=== PATIENT | female | born 1955 | race Caucasian/White ===

== ENCOUNTER → 2019-09-15 | Outpatient (CLI) | payer OTHER ==
[~2019-09-15] VITALS: Ht 147.3 cm; Wt 68.9 kg
[~2019-09-15] MED LIST: FISH OIL 1,001000 M3 PO; HYDROCHLOROTH12.5 M1 PO; HYDROCHLOROTHIA25 M2 PO; MAGNESIUM250 M1 PO; MEDROLDOSEPACK PO; SUPER THERAVIT1 EACH PO; ZOCOR40 MG PO
[2019-09-15 13:34] VITALS: BP 130/71
--- NOTE | 2019-09-15 13:59 | NUR ---
Pain Clinic Assessment: 1. History of Osteoarthritis: BACK History of Rheumatoid Arthritis: Not Applicable 2. Height: 4 ft. 10 in. 147.3 cm. Weight: 152.0 lb. oz. 68.947 kg. Patient's BMI: 31.8 3. Vital Signs: BP: 130/71 Pulse: 80 Resp: 14 Temp: 02 Sat: 100 ECG Mon: 4. Pain Intensity: 6 5. Fall Risk: Dizziness: N Needs help standing or walking: N Fallen in the last 3 months: N Fall risk comments: 6. Patient on Blood Thinner: None 7. History of Hypertension: Y 8. Opioid Therapy greater than 6 weeks: N Opiate Contract Signed: 9. Risk Assessment Tool Provided: LOW RISK 0/3 10. Functional Assessment Tool: 11. Recreational Drug Use: Never Drug Type: Tobacco Use: Never Smoker Tobacco Type: Amount or Packs/day: How Many Years: Alcohol Use: Yes Frequency: Weekly Quant: 6-8
--- NOTE | 2019-09-22 16:27 | HPC ---
[address] [address] PAIN MANAGEMENT CONSULTATION Name: NICK CALHOUN Room #: REG [facility].#: [id number] Admission: 09/15/19 Attend Phys: Kushal Horta DO Discharge: Date of : 57 Report #: [id number] THIS REPORT FOR: //name// CC: Kushal Iqbal MD REFERRING PHYSICIAN: Dr. Deisy Iqbal with [facility]. CHIEF COMPLAINT: Neck pain, left upper extremity pain. HISTORY OF PRESENT ILLNESS: As you know, the patient is a 64-year-old female referred to our service with chronic left neck pain that has been present since 2009. She states about a year ago she underwent a cervical epidural injection with improvement in symptoms. Unfortunately, it will take over a 6-month period of time to be seen back to the [facility] where she received this injection. She was subsequently referred to our clinic to undergo next in the series of cervical epidural injections. She was referred by her primary care to discuss the possibility of undergoing these injections. She noted excellent benefit with previous cervical epidural injection reporting upwards of 70% improvement in overall pain lasting for an extended period of time. She denies injury or trauma to the cervical region that may have caused symptom development. She states she has had history of chronic neck pain that has been present for an extended period of time. MRI of the cervical region shows posterior disk bulge symmetric to the right though the patient is experiencing mainly left-sided pain. She was referred to trial a cervical epidural injection. The patient indicates today's pain is periodic. She describes the pain as shooting, cramping, sharp, numbness and tingling. The patient's current pain score 6/10, daily average of 4-6/10, worst pain has been is 10/10. The patient states yard work and sleeping exacerbates symptoms. Cervical epidural injections, rest and relaxation tend to improve pain. She has been referred to our clinic to undergo cervical epidural injection under fluoroscopic guidance. PAST MEDICAL HISTORY: 1. Asthma. 2. Hypertension. 3. Dyslipidemia. PAST SURGICAL HISTORY: Biopsy of the left breast. SOCIAL HISTORY: The patient denies tobacco, IV or illicit drug use. Admits to 6-8 alcoholic beverages per week. 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 She is working, not receiving workmen's compensation or she is trying to obtain disability benefits. She is unaccompanied at today's visit. REVIEW OF SYSTEMS: Positive for night sweats, fatigue and weakness, frequent [facility] [address] [place] [address] PAIN MANAGEMENT CONSULTATION Name: NICK CALHOUN Room #: REG [facility]#: [id number] Admission: 09/15/19 Attend Phys: Kushal Horta DO Discharge: Date of : 57 Report #: [id number] and recurrent headaches, wearing corrective eyewear, hearing loss with tinnitus, shortness of breath with walking or lying flat, asthma, wheezing, nocturia, varicose veins, numbness and tingling sensations. All other review of systems negative per 12-point review of systems other than those listed in history of present illness. Pain impact score 19 of 70 indicating mild interference of daily activities secondary to pain. ALLERGIES: No reported drug allergies. CURRENT MEDICATIONS: Magnesium 250 mg once a day, multivitamin 1 tab per day, omega-3 fish oil 1 tab per day, simvastatin 40 mg per day, hydrochlorothiazide 25 mg once a day. IMAGING: MRI cervical spine obtained on 01/24/2018 showed C2-3 unremarkable, C3-4 shows bilateral facet uncovertebral hypertrophy causing moderate to severe right and moderate to left foraminal stenosis, no central canal stenosis. C4-5 bilateral facet uncovertebral changes causing moderate to severe right and moderate left neural foraminal stenosis, no central canal stenosis. C5-6 bilateral facet uncovertebral hypertrophy causing severe bilateral foraminal stenosis, posterior disk osteophyte ____ complex causing flattening of the thecal sac. C6-7 posterior disk bulge asymmetric to the right causing compression of thecal sac, bilateral facet and uncovertebral hypertrophy causing mild bilateral foraminal stenosis. C7-T1 shows hypertrophy causing moderate foraminal stenosis. No central canal stenosis. PHYSICAL EXAMINATION: VITAL SIGNS: Blood pressure 130/71, pulse 80, respiratory rate 14 and unlabored. The patient is 100% on room air. Height 4 feet 10 inches tall, weight 152 pounds, BMI calculated 31.8. GENERAL: Well-developed, well-nourished, well-hydrated exogenously obese 64-year-old female appearing stated age, pain is rated at around 6/10. HEENT: Normocephalic, atraumatic. Pupils equal, round, reactive to light. Extraocular muscles are intact. Sclerae nonicteric without injection. NEUROLOGIC: Cranial nerves 2-12 grossly intact. Speech fluent. The patient deemed a good historian. LUNGS: Clear, no wheeze, rhonchi or rales. CARDIOVASCULAR: Regular. No appreciable gallop, no rub. ABDOMEN: Soft, nontender, nondistended, normal active bowel sounds. EXTREMITIES: Show no clubbing, no cyanosis, and no edema. MUSCULOSKELETAL: Upper extremity strength appears symmetrical 5/5. No atrophy noted of the musculature. Muscle bulk and tone equal and symmetrical in comparing left upper extremity to right. Spurling's test is positive left, negative right. Cervical provocation testing including extension, rotation, lateral flexion to the left intensify neck pain with radiation down the arm. [facility] [address] [place] [address] PAIN MANAGEMENT CONSULTATION Name: NICK CALHOUN Room #: REG [facility]#: [id number] Admission: 09/15/19 Attend Phys: Kushal Horta DO Discharge: Date of : 57 Report #: [id number] ASSESSMENT: 1. Cervical radiculopathy. 2. Displacement of cervical intervertebral disk with radiculopathy. 3. Cervical spondylosis with radiculopathy. 4. Foraminal stenosis of the cervical spine. 5. Central canal stenosis of the cervical spine. 6. Chronic intractable pain. PLAN: 1. Based on today's physical exam and history the patient has provided, the description the patient uses in regards to pain as well as the location of symptoms, likely source of the patient's pain is a cervical radiculopathy. The patient and I discussed at length today treatment options for cervical radiculopathy. The following was discussed with the patient on treatment, course is available. 2. We discussed physical therapy, stretching exercises and traction techniques as a treatment course. We discussed medication management utilizing nonsteroidal anti-inflammatories and a consistent nonsteroidal anti-inflammatory such as nortriptyline, amitriptyline, Cymbalta, Lyrica or gabapentin. We discussed cervical epidural injections under fluoroscopic guidance, which have been successful for the patient in the past. We also discussed surgical options with the patient today. After reviewing risks and benefits of all proposed treatment options, the patient chose to begin with a cervical epidural injection under fluoroscopic guidance. The patient was advised risks and benefits of a cervical epidural injection. These risks include but are not necessarily limited to bleeding, bruising, infection, worsening pain, no relief of pain, also risk of temporary or permanent muscle weakness, temporary or permanent nerve damage, possible paralysis, post-dural puncture headache and . The patient states she understood and wished to proceed. 3. No medication changes made at today's visit. The patient will continue current medical therapy as prior prescribed. 4. We will see the patient back in followup visit for next in a series of cervical epidural injections. 5. We wish to thank Dr. Deisy Iqbal for the opportunity to see this patient in consultation. We will keep you apprised of response to treatment as we address cervical radiculopathy. Again, we wish to thank you for the opportunity to see the patient in consultation. PROCEDURE NOTE DESCRIPTION OF PROCEDURE: C7-T1 cervical epidural steroid injection under fluoroscopic guidance. This is the first procedure of the first series that the patient is undergoing. [address] [address] PAIN MANAGEMENT CONSULTATION Name: UNIQUENICK Room #: REG [facility]#: [id number] Admission: 09/15/19 Attend Phys: Kushal Horta DO Discharge: Date of : 57 Report #: [id number] After obtaining written consent, the patient was taken back to the fluoroscopy suite and placed in a prone position with separate pillows under chest and forehead to decrease cervical lordosis. The skin overlying the cervical area was prepped and draped in an aseptic fashion. The C7-T1 vertebral interspace was identified by AP fluoroscopy. The skin and subcutaneous tissue overlying the target site of injection was anesthetized using 3 mL of 1% lidocaine. A 20-gauge 3.5-inch Tuohy needle was advanced under fluoroscopic guidance toward the epidural space using a midline approach. The epidural space was identified using a loss of resistance to air technique. After negative aspiration for heme or cerebrospinal fluid, a total of 1 mL of Omnipaque was injected. A cervical epidurogram was confirmed using AP and oblique fluoroscopy. After negative aspiration for heme or cerebrospinal fluid, 5 mL of a solution containing 2 mL of 40 mg per mL, 80 mg total triamcinolone along with 3 mL lidocaine 1% was injected in increments. Contrast spread was noted from posterior epidural space. The needle was then retracted approximately skilled nursing and the needle track was flushed with 1 mL of 1% lidocaine. There were no apparent new sensory deficits in the upper extremities present following the procedure. A sterile bandage was placed over the injection site. The heart rate, pulse oximetry and blood pressure were continuously monitored after the procedure. There were no apparent complications. The patient tolerated the procedure well and was carefully escorted in the recovery room in stable condition. After meeting discharge criteria, the patient was discharged home. <ELECTRONICALLY SIGNED> By: Kushal Horta DO 09/22/19 [id number] Kushal Horta DO /nt
== END | disposition home or self-care (01) ==
LOC: PAIN 06:58
DX: M50.10 Cervical disc disorder with radiculopathy, unspecified cervical region (principal); M47.22 Other spondylosis with radiculopathy, cervical region; M48.02 Spinal stenosis, cervical region; G89.29 Other chronic pain; I10 Essential (primary) hypertension; E78.5 Hyperlipidemia, unspecified; J45.909 Unspecified asthma, uncomplicated; E66.09 Other obesity due to excess calories; Z98.890 Other specified postprocedural states; Z79.899 Other long term (current) drug therapy; Z68.31 Body mass index [BMI] 31.0-31.9, adult

== ENCOUNTER → 2019-12-29 | Outpatient (CLI) | payer OTHER ==
[~2019-12-29] VITALS: Ht 149.9 cm; Wt 69.7 kg
[2019-12-29 13:09] VITALS: BP 135/76
--- NOTE | 2019-12-29 13:16 | NUR ---
Pain Clinic Assessment: 1. History of Osteoarthritis: BACK History of Rheumatoid Arthritis: Not Applicable 2. Height: 4 ft. 11 in. 149.9 cm. Weight: 153.6 lb. oz. 69.672 kg. Patient's BMI: 31.0 3. Vital Signs: BP: 135/76 Pulse: 79 Resp: 18 Temp: 02 Sat: 98 ECG Mon: 4. Pain Intensity: 4-5 5. Fall Risk: Dizziness: N Needs help standing or walking: N Fallen in the last 3 months: N Fall risk comments: 6. Patient on Blood Thinner: None 7. History of Hypertension: Y 8. Opioid Therapy greater than 6 weeks: N Opiate Contract Signed: 9. Risk Assessment Tool Provided: LOW RISK 0/3 10. Functional Assessment Tool: 11. Recreational Drug Use: Never Drug Type: Tobacco Use: Never Smoker Tobacco Type: Amount or Packs/day: How Many Years: Alcohol Use: Yes Frequency: Quant:
--- NOTE | 2019-12-30 11:52 | HPC ---
[facility] [place] [place] [place] [address] PAIN MANAGEMENT CONSULTATION Name: NICK CALHOUN Room #: REG [facility].#: [id number] Admission: 12/29/19 Attend Phys: Kushal Horta DO Discharge: Date of : 57 Report #: [id number] THIS REPORT FOR: cc: Deisy Iqbal MD, Tisha Darice MD Johnson, James E. DO ~ DATE OF SERVICE: 12/29/2019 CHIEF COMPLAINT: Neck pain, right upper extremity pain with paresthesias. HISTORY OF PRESENT ILLNESS: As you know, the patient is a 64-year-old female who returns today in followup visit with recurrent neck pain, now right upper extremity pain with paresthesias. As you are aware, the patient suffers from C5-C6, severe neural foraminal stenosis and she was seen in our visit of 09/15/2019 where she underwent a cervical epidural injection with good efficacy. Unfortunately, she has begun to experience right upper extremity pain for which she is now placing pain score 4-5/10. She states her pain is aching, dull, heavy and constant in sensation, exacerbated with housework or lifting her right arm, improves with rest. She returns today for cervical epidural injection under fluoroscopic guidance. The patient denies new injury or trauma that may have led to symptom reoccurrence. ALLERGIES: No known drug allergies. CURRENT MEDICATIONS: Hydrochlorothiazide, simvastatin, omega-3 fish oil, multivitamin, magnesium. SOCIAL HISTORY: The patient denies tobacco, IV or illicit drug use. Admits to occasional alcohol beverage. 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 IMAGING: No new imaging available. PHYSICAL EXAMINATION: VITAL SIGNS: Blood pressure 135/76, pulse 79, respiratory rate 18 and unlabored. The patient is 98% on room air. Height 4 feet 11 inches tall, weight 153.6 pounds and BMI calculated at 31.0. GENERAL: Well-developed, well-nourished, well-hydrated 64-year-old female appearing stated age, pain is rated anywhere from 4-5/10. HEENT: Normocephalic, atraumatic. Pupils equal, round, reactive to light. EXTREMITIES: Show no clubbing, no cyanosis, no edema. MUSCULOSKELETAL: Cervical provocation testing is met with increasing pain mainly with her rightward movement. Spurling's test positive right, negative left. There is restriction of motion to rotation and lateral flexion [facility] [address] [place] [address] PAIN MANAGEMENT CONSULTATION Name: NICK CALHOUN [id number] Admission: 12/29/19 Attend Phys: Kushal Horta DO Discharge: Date of : 57 Report #: [id number] bilaterally. ASSESSMENT: 1. Cervical radiculopathy. 2. Neural foraminal stenosis of the cervical spine. 3. Displacement of cervical intervertebral disk with radiculopathy. 4. Cervical spondylosis with radiculopathy. 5. Central canal stenosis of the cervical spine. 6. Chronic intractable pain. PLAN: 1. The patient returns today in followup visit having no symptoms involving the neck and right upper extremity when we originally saw the patient was neck and left upper extremity. As you are aware, the patient has changes at the C5-C6 level consistent with bilateral nature of pain. She has severe bilateral neural foraminal stenosis at the C5-C6 level with flattening of the thecal sac. Her distribution does appear to be consistent with this neural foraminal stenosis. We discussed with the patient the treatment options and she chose to undergo cervical epidural injection. The patient was advised risks and benefits of a cervical epidural injection. These risks include but are not necessarily limited to bleeding, bruising, infection, worsening pain, no relief of pain, also risk of temporary or permanent muscle weakness, temporary or permanent nerve damage, possible paralysis, post-dural puncture headache and . The patient states understood and wished to proceed. 2. No medication changes made at today's visit. The patient will continue current medical therapy as prior prescribed. 3. We will see the patient back in followup visit on an as needed basis for possible next in the series of cervical epidural injections under fluoroscopic guidance. PROCEDURE NOTE DESCRIPTION OF PROCEDURE: C7-T1 cervical epidural steroid injection under fluoroscopic guidance. This is the second procedure of the first series that the patient is undergoing. After obtaining written consent, the patient was taken back to the fluoroscopy suite and placed in a prone position with separate pillows under chest and forehead to decrease cervical lordosis. The skin overlying the cervical area was prepped and draped in an aseptic fashion. The C7-T1 vertebral interspace was identified by AP fluoroscopy. The skin and subcutaneous tissue overlying the target site of injection was anesthetized using 3 mL of 1% lidocaine. [address] [address] PAIN MANAGEMENT CONSULTATION Name: NICK CALHOUN Room #: [facility] Tan#: [id number] Admission: 12/29/19 Attend Phys: Kushal Horta DO Discharge: Date of : 57 Report #: [id number] A 20-gauge 3-1/2 inch Tuohy needle was advanced under fluoroscopic guidance toward the epidural space using a midline approach. The epidural space was identified using a loss of resistance to air technique. After negative aspiration for heme or cerebrospinal fluid, a total of 1 mL of Omnipaque was injected. A cervical epidurogram was confirmed using AP and oblique fluoroscopy. After negative aspiration for heme or cerebrospinal fluid, 5 mL of a solution containing 2 mL 70 mg per mL, 80 mg total triamcinolone along with 3 mL of lidocaine 1% injected in increments. Contrast spread was noted from posterior epidural space. The needle was then retracted approximately snf and the needle track was flushed with 1 mL of 1% lidocaine. There were no apparent new sensory deficits in the upper extremities present following the procedure. A sterile bandage was placed over the injection site. The heart rate, pulse oximetry and blood pressure were continuously monitored after the procedure. There were no apparent complications. The patient tolerated the procedure well and was carefully escorted in the recovery room in stable condition. After meeting discharge criteria, the patient was discharged home. <ELECTRONICALLY SIGNED> By: Kushal Horta DO 12/30/19 1152 [id number] Kushal Horta DO /nt
== END | disposition home or self-care (01) ==
LOC: PAIN 12:55
DX: M50.10 Cervical disc disorder with radiculopathy, unspecified cervical region (principal); M47.22 Other spondylosis with radiculopathy, cervical region; M48.02 Spinal stenosis, cervical region; G89.29 Other chronic pain; J45.909 Unspecified asthma, uncomplicated; Z98.890 Other specified postprocedural states; Z79.899 Other long term (current) drug therapy